=== PATIENT | female | born 2005 | race Caucasian/White ===

== ENCOUNTER 2023-04-01 14:33 | Outpatient (CLI) | payer OTHER, SELFPAY ==
[2023-04-01 18:55] LABS: Chlamydia DNA Amplified* NOT DETECTED (No Detected); GC DNA Amplified* NOT DETECTED (No Detected)
== END 2023-04-01 14:34 | disposition home or self-care (01) ==
PROVIDERS: Visit Provider Registered Nurse
DX: N92.1 Excessive and frequent menstruation with irregular cycle (principal); E66.9 Obesity, unspecified; R30.0 Dysuria; Z13.6 Encounter for screening for cardiovascular disorders; Z13.1 Encounter for screening for diabetes mellitus; Z11.3 Encounter for screening for infections with a predominantly sexual mode of transmission; Z72.51 High risk heterosexual behavior
CPT/HCPCS: 80061; 82947; 83498; 84146; 84270; 84402; 84403; 84443; 87086; 87491; 87591